=== PATIENT | female | born 1965 | race Caucasian/White ===

== ENCOUNTER 2017-11-29 13:41 | Outpatient (CLI) | payer OTHER ==
--- NOTE | 2017-11-29 15:27 | RAD ---
LUMBAR SPINE 3 VIEWS: HISTORY: Low back pain. History of fracture of L3-4 x 20 years is given as reason. COMPARISON: No comparison. FINDINGS: There is mild compression deformity of the L1 vertebra. This results in mild loss of central and ant erior height. Anterior height loss is estimated in the 15-20% range. There is loss of disk space at T12-L1. Mild superior end plate depression at this L1 vertebra. This is an age-indeterminate compr ession fracture. There is no buckling of anterior cortex that would suggest acute process. The other lumbar vertebrae maintain height and alignment. Mild degenerative osteophytes are seen. T he disk spaces are otherwise preserved. Alignment is normally maintained. Mild facet hypertrophy is seen at L4-5 and L5-S1. IMPRESSION: Compression deformity of L1 vertebra as described. This is age-indeterminate, although no secondary evidence that would suggest an acute fracture is noted. If there is recent injury or new pain, MRI c ould be performed to assess for edema within this vertebral body if indicated. POS: [facility]
== END 2017-11-29 13:42 | disposition home or self-care (01) ==
LOC: MADRAD 13:41
PROVIDERS: ATTEND Orthopaedic Surgery
DX: M46.97 Unspecified inflammatory spondylopathy, lumbosacral region (principal); M43.8X6 Other specified deforming dorsopathies, lumbar region
CPT/HCPCS: 72100